=== PATIENT | female | born 1955 | race Caucasian/White ===

== ENCOUNTER 2020-12-05 07:00 | Outpatient (RCR) | payer OTHER | END 2020-12-07 | LOC: PT 07:00 | PROVIDERS: ATTEND Orthopaedic Surgery Sports Medicine | DX: M17.11 Unilateral primary osteoarthritis, right knee (principal) ==

== ENCOUNTER 2021-01-05 07:00 | Outpatient (RCR) | payer OTHER | END 2021-01-07 | LOC: PT 07:00 | PROVIDERS: ATTEND Orthopaedic Surgery Sports Medicine | DX: M17.11 Unilateral primary osteoarthritis, right knee (principal) ==

== ENCOUNTER → 2021-02-06 | Outpatient (RCR) | payer OTHER | LOC: PT 01-08 07:06 | PROVIDERS: ATTEND Orthopaedic Surgery Sports Medicine | DX: Z96.651 Presence of right artificial knee joint (principal); Z47.1 Aftercare following joint replacement surgery; R26.2 Difficulty in walking, not elsewhere classified | CPT/HCPCS: 97139 ==